=== PATIENT | male | born 1965 | race Caucasian/White ===

== ENCOUNTER 2024-07-01 06:36 | Day surgery (SDC) | payer OTHER, SELFPAY ==
[2024-06-22 14:51] LABS: Hematocrit 36.8 % (39.0-52.0); Hemoglobin 13.3 g/dL (13.0-18.0); Mean Corp Hgb Conc. 36.1 g/dL (33.0-37.0); Mean Corpuscular Hgb 33.4 pg (27.0-31.0); Mean Corpuscular Volume 92.5 fL (80.0-94.0); Mean Platelet Volume 10.6 fL (7.4-10.4); Platelet Count 244 10^3/uL (130-400); Red Blood Cell Count 3.98 10^6/uL (4.70-6.10); Red Cell Dist. Width 13.1 % (11.5-14.5); White Blood Cell Count 3.9 10^3/uL (4.8-10.8)
[2024-06-23 11:18] VITALS: BMI 27.2
[2024-07-01] VITALS (12 sets, daily range): BP systolic 136–156; BP diastolic 82–104; BMI 27.2
[2024-07-01] MEDS: CELEBREX 200 MG PO (13:33)
[2024-07-01] MEDS: TYLENOL 1000 MG PO (13:33)
[2024-07-01] MEDS: NORMOSOL-R 1000 IV (13:38)
== END 2024-07-01 18:40 | disposition home or self-care (01) ==
LOC: SDS 06:36
PROVIDERS: ATTENDING PHYSICIAN Orthopaedic Surgery Hand Surgery; FAMILY PHYSICIAN Family Medicine
DX: M75.42 Impingement syndrome of left shoulder (principal); M75.22 Bicipital tendinitis, left shoulder; M19.012 Primary osteoarthritis, left shoulder
CPT/HCPCS: 23430; 29824; 36415; 85027